=== PATIENT | male | born 1945 | race Two or more races ===

== ENCOUNTER 2023-08-19 11:55 | Emergency (ER) | payer MEDICARE, OTHER ==
[~2023-08-19] VITALS: Ht 172.7 cm; Wt 91.6 kg
[2023-08-19 11:58] VITALS: TEMP 98.6
[2023-08-19 13:37] LABS: BASOPHILS # (AUTO) 0.1 K/uL (0.0-0.2); BASOPHILS % (AUTO) 0.7 % (0.0-2.0); EOSINOPHILS # (AUTO) 0.1 K/uL (0.0-0.7); HEMATOCRIT 40 % (39-51); HEMOGLOBIN 13.7 g/dL (13.5-17.5); LYMPHOCYTES # (AUTO) 1.2 K/uL (0.8-4.8); LYMPHOCYTES % (AUTO) 8.8 % (20.0-44.0); MEAN CORPUSCULAR HEMOGLOBIN 30 PG (26.0-33.0); MEAN CORPUSCULAR HGB CONC 34 g/dl (31.0-36.0); MEAN CORPUSCULAR VOLUME 88 fL (80-96); MONOCYTES # (AUTO) 0.7 K/uL (0.1-1.30); NEUTROPHILS # (AUTO) 11.5 K/uL (1.8-8.9); NEUTROPHILS % (AUTO) 84.5 % (43.0-81.0); PLATELET COUNT (AUTO) 245 K/uL (150-450); RED BLOOD CELL COUNT(AUTO) 4.58 MIL/uL (4.5-6.0); RED CELL DISTRIBUTION WIDTH 13.7 % (11.5-15.0); WHITE BLOOD COUNT (AUTO) 13.6 K/uL (4.3-11.0)
[2023-08-19 13:45] LABS: CALCIUM, SERUM 9.5 mg/dL (8.5-10.1); CREATININE 1.2 mg/dL (0.6-1.3); POTASSIUM 3.8 mmol/L (3.5-5.1)
[2023-08-19 13:51] LABS: ALBUMIN 4.3 g/dL (3.4-5.0); BILIRUBIN,DIRECT 0.2 mg/dL (0.0-0.2); TOTAL PROTEIN, SERUM 7.8 g/dL (6.4-8.2)
[2023-08-19] MEDS ORDERED: MINERAL OIL 133 ML (PYXIS) 1 EA ENEMA RC ONE ×2 (15:16→15:30)
[2023-08-19] MEDS ORDERED: POLY17PO4 PO ×2 (15:21→15:42)
[2023-08-19] MEDS ORDERED: ACET-2605 PO ×2 (15:21→15:42)
[2023-08-19] MEDS ORDERED: ACETAMINOPHEN 325 MG TABLET PO ONE (15:30)
[2023-08-19] MEDS ORDERED: ACETAMINOPHEN 325 MG TABLET ONE (15:37)
[2023-08-19 16:35] VITALS: BP 119/80; O2SAT 98
[2023-08-19 17:38] LABS: APPEARANCE,URINE CLEAR (CLEAR); COLOR,URINE YELLOW (YELLOW)
[2023-08-19 17:39] LABS: BILIRUBIN,URINE TRACE (NEGATIVE); BLOOD, URINE NEGATIVE Ery/uL (NEGATIVE); KETONES,URINE 1+ mg/dL (NEGATIVE); PROTEIN,URINE NEGATIVE (NEGATIVE); UGLUCOSE NEGATIVE (NEGATIVE)
[2023-08-19 17:40] LABS: LEUKOCYTE ESTERASE ,URINE NEGATIVE (NEGATIVE); NITRITE, URINE NEGATIVE (NEGATIVE)
[2023-08-19 17:41] LABS: ADD URINE CULTURE NO; BACTERIA,URINE Rare /HPF (None Seen); RBC,URINE 0-2 /HPF (0-2); SQUAMOUS EPITHELIAL CELL,UR Few /HPF (None Seen); WBC,URINE 0-2 /HPF (0-3)
== END 2023-08-19 16:36 | disposition home or self-care (01) ==
LOC: ER 11:58
DX: N20.0 Calculus of kidney (principal); K57.90 Diverticulosis of intestine, part unspecified, without perforation or abscess without bleeding; K59.00 Constipation, unspecified; I10 Essential (primary) hypertension; Z60.2 Problems related to living alone
CPT/HCPCS: 36415; 80048-TC; 80076-TC; 81001; 83690-TC; 85025-TC

== ENCOUNTER 2024-07-17 13:06 | Emergency (ER) | payer MEDICARE, OTHER ==
[~2024-07-17] VITALS: Ht 165.1 cm; Wt 78.0 kg
[~2024-07-17 13:06] MED LIST: ACET-2605 PO; POLY17PO4 PO
[2024-07-17 14:12] LABS: BASOPHILS # (AUTO) 0.1 K/uL (0.0-0.2); BASOPHILS % (AUTO) 1.1 % (0.0-2.0); EOSINOPHILS # (AUTO) 0.2 K/uL (0.0-0.7); EOSINOPHILS % (AUTO) 3.5 % (0.0-6.0); HEMATOCRIT 37 % (39-51); HEMOGLOBIN 12.7 g/dL (13.5-17.5); LYMPHOCYTES # (AUTO) 1.9 K/uL (0.8-4.8); LYMPHOCYTES % (AUTO) 29.5 % (20.0-44.0); MEAN CORPUSCULAR HEMOGLOBIN 31 PG (26.0-33.0); MEAN CORPUSCULAR HGB CONC 35 g/dl (31.0-36.0); MEAN CORPUSCULAR VOLUME 91 fL (80-96); MONOCYTES # (AUTO) 0.4 K/uL (0.1-1.30); NEUTROPHILS # (AUTO) 3.9 K/uL (1.8-8.9); NEUTROPHILS % (AUTO) 59.9 % (43.0-81.0); PLATELET COUNT (AUTO) 199 K/uL (150-450); RED BLOOD CELL COUNT(AUTO) 4.07 MIL/uL (4.5-6.0); RED CELL DISTRIBUTION WIDTH 13.1 % (11.5-15.0); WHITE BLOOD COUNT (AUTO) 6.5 K/uL (4.3-11.0)
[2024-07-17] MEDS: POLYETHYLENE GLYCOL 3350 17 GM POWD.PACK PO ONE (14:20)
[2024-07-17 14:49] LABS: CALCIUM, SERUM 9.1 mg/dL (8.5-10.1); CARBON DIOXIDE 27 mmol/L (21-32); CHLORIDE 111 mmol/L (98-107); CREATININE 1.3 mg/dL (0.6-1.3); GLUCOSE 96 mg/dL (74-106); POTASSIUM 3.9 mmol/L (3.5-5.1); SODIUM SERUM 149 mmol/L (136-145); UREA NITROGEN, BLOOD 20 mg/dL (7-18)
[2024-07-17 15:01] LABS: ALANINE AMINOTRANSFERASE 12 U/L (12-78); ALBUMIN 3.9 g/dL (3.4-5.0); ALKALINE PHOSPHATASE 46 U/L (46-116); ASPARTATE AMINOTRANSFERASE 15 U/L (15-37); BILIRUBIN,DIRECT 0.1 mg/dL (0.0-0.2); BILIRUBIN,TOTAL 0.6 mg/dL (0.2-1.0); NT-PRO BNP 846 pg/mL (0-125); TOTAL PROTEIN, SERUM 7.2 g/dL (6.4-8.2)
[2024-07-17] MEDS ORDERED: POLY17PO4 PO (15:26)
[2024-07-17] MEDS ORDERED: ACET-2605 PO (15:26)
[2024-07-17] MEDS ORDERED: ACETAMINOPHEN ES 500 MG TABLET ONE (15:48)
[2024-07-17] MEDS: ACETAMINOPHEN ES 500 MG TABLET PO ONE (15:49)
[2024-07-17 16:44] VITALS: BP 145/89; TEMP 98.9; O2SAT 100
== END 2024-07-17 16:35 | disposition home or self-care (01) ==
LOC: ER 13:14
DX: B34.9 Viral infection, unspecified (principal); R42 Dizziness and giddiness; M79.10 Myalgia, unspecified site; I10 Essential (primary) hypertension; K59.00 Constipation, unspecified; R05.9 Cough, unspecified; R06.02 Shortness of breath; Z95.0 Presence of cardiac pacemaker; Z60.2 Problems related to living alone; Z20.822 Contact with and (suspected) exposure to COVID-19
CPT/HCPCS: 36415; 71045-TC; 80048-TC; 80076-TC; 83880; 84484-TC; 85025-TC

== ENCOUNTER → 2024-12-30 | Emergency (ER) | payer OTHER, MEDICAID ==
[~2024-12-30] VITALS: Ht 165.1 cm; Wt 85.7 kg
[~2024-12-30] MED LIST changes: +IV NS 0.9% 500 ML BAG IV ONE
[2024-12-30 04:59] VITALS: BP 145/68; TEMP 97.8; O2SAT 98
== END | disposition home or self-care (01) ==
LOC: ER 03:02
DX: S09.90XA Unspecified injury of head, initial encounter (principal); I10 Essential (primary) hypertension; Z95.0 Presence of cardiac pacemaker; Z79.899 Other long term (current) drug therapy; W01.0XXA Fall on same level from slipping, tripping and stumbling without subsequent striking against object, initial encounter; Y93.89 Activity, other specified; Y92.89 Other specified places as the place of occurrence of the external cause; Y99.8 Other external cause status
CPT/HCPCS: 99284; 72125; 70450; J7040

== ENCOUNTER 2025-07-25 18:29 | Inpatient (IN) | payer MEDICARE, OTHER ==
[~2025-07-25] VITALS: Ht 172.7 cm; Wt 78.5 kg
[~2025-07-25 18:29] MED LIST changes: -IV NS 0.9% 500 ML BAG IV ONE
[2025-07-25 19:08] LABS: PLATELET COUNT (AUTO) 383 K/uL (150-450); RED BLOOD CELL COUNT(AUTO) 4.22 MIL/uL (4.5-6.0); RED CELL DISTRIBUTION WIDTH 13.7 % (11.5-15.0); WHITE BLOOD COUNT (AUTO) 27.8 K/uL (4.3-11.0)
[2025-07-25] MEDS ORDERED: CEFEPIME 1 GM VIAL ONE (19:11)
[2025-07-25] MEDS: CEFEPIME 1 GM in IV D5W 50 ML IV ONE (19:15)
[2025-07-25 19:16] LABS: CALCIUM, SERUM 9.5 mg/dL (8.5-10.1); CREATININE 1.2 mg/dL (0.6-1.3); SODIUM SERUM 140 mmol/L (136-145); UREA NITROGEN, BLOOD 26 mg/dL (7-18)
[2025-07-25 19:19] LABS: INR 1.04 (0.91-1.10)
[2025-07-25 19:22] LABS: ASPARTATE AMINOTRANSFERASE 11 U/L (15-37); TOTAL PROTEIN, SERUM 8.1 g/dL (6.4-8.2)
[2025-07-25 19:24] LABS: LACTIC ACID 1.1 mmol/L (0.4-2.0)
[2025-07-25] MEDS ORDERED: VANCOMYCIN 1 GM /D5W 250 ML PB IV ONE (19:46)
[2025-07-25] MEDS: VANCOMYCIN 1 GM in IV D5W 250 ML IV ONE (19:50)
[2025-07-25] MEDS: IV NS 0.9% 1,000 ML BAG IV ONE (19:55)
[2025-07-25] MEDS: ACETAMINOPHEN 650 MG/SUPP.RECT RC ONE (20:30)
[2025-07-25 20:33] LABS: APPEARANCE,URINE CLEAR (CLEAR); BLOOD, URINE NEGATIVE Ery/uL (NEGATIVE); LEUKOCYTE ESTERASE ,URINE NEGATIVE (NEGATIVE); NITRITE, URINE NEGATIVE (NEGATIVE); UGLUCOSE NEGATIVE (NEGATIVE)
[2025-07-25] MEDS ORDERED: IOHEXOL-300 100 ML VIAL IV ONE (20:56)
[2025-07-25] MEDS ORDERED: IV NS 0.9% 250 ML IV ONE (20:57)
[2025-07-25 21:40] VITALS: BP 94/83; TEMP 98.2; O2SAT 98
[2025-07-25] MEDS ORDERED: DOSING PER PHARMACY-VANCOMYCIN IV XX PRN (22:00)
[2025-07-25] MEDS ORDERED: ONDANSETRON HCL/PF 4 MG/2 ML VIAL IVP PRN (22:00)
[2025-07-25] MEDS ORDERED: DOSING PER PHARMACY-CEFEPIME IVPB XX PRN (22:00)
[2025-07-25] MEDS ORDERED: MAGNESIUM HYDROXIDE 30 ML UDC PO PRN (22:00)
[2025-07-25] MEDS ORDERED: MAG HYDROX/AL HYDROX/SIMETH 30 ML UDC PO PRN (22:00)
[2025-07-25 23:03] VITALS: BP 94/83; TEMP 98.2; O2SAT 98
[2025-07-25] MEDS: IV NS 0.9% 1,000 ML IV PRN (23:30)
[2025-07-26 05:57] LABS: PLATELET COUNT (AUTO) 286 K/uL (150-450); RED BLOOD CELL COUNT(AUTO) 4.55 MIL/uL (4.5-6.0); RED CELL DISTRIBUTION WIDTH 14.2 % (11.5-15.0); WHITE BLOOD COUNT (AUTO) 28.4 K/uL (4.3-11.0)
[2025-07-26 06:12] LABS: CALCIUM, SERUM 9.2 mg/dL (8.5-10.1); CREATININE 1.4 mg/dL (0.6-1.3); PHOSPHORUS 3.6 mg/dL (2.5-4.9); SODIUM SERUM 138.0 mmol/L (136-145); UREA NITROGEN, BLOOD 24.0 mg/dL (7-18)
[2025-07-26 08:00] VITALS: BP 108/78; TEMP 98.6; O2SAT 98
[2025-07-26] MEDS: CEFEPIME 2 GM in IV D5W 100 ML IV SCH (08:58)
[2025-07-26] MEDS: AMLODIPINE BESYLATE 5 MG TABLET PO SCH (09:00)
[2025-07-26] MEDS ORDERED: BENAZEPRIL HCL 20 MG TABLET PO SCH (09:00)
[2025-07-26] MEDS ORDERED: MESALAMINE 250 MG CAPSULE.SA PO SCH ×2 (09:00)
[2025-07-26] MEDS: VANCOMYCIN 750 MG in IV D5W 250 ML IV ONE (10:18)
[2025-07-26] MEDS: ASCORBIC ACID 500 MG TABLET PO SCH (10:54)
[2025-07-26] MEDS: FERROUS SULFATE (325 MG) 325 MG/TAB TABLET PO SCH (10:54)
[2025-07-26] MEDS: DULOXETINE HCL 30 MG CAPSULE.DR PO SCH (10:54)
[2025-07-26] MEDS: FOLIC ACID 1 MG TABLET PO SCH (11:03)
[2025-07-26] MEDS: APIXABAN 2.5 MG TABLET PO SCH (11:03)
[2025-07-26] MEDS: PANTOPRAZOLE 40 MG TABLET.DR PO SCH (11:03)
[2025-07-26] MEDS: CYANOCOBALAMIN 500 MCG TABLET PO SCH (11:10)
[2025-07-26] MEDS: MULTIVIT W/MINERALS 1 TAB TABLET PO SCH (11:10)
[2025-07-26] MEDS: MUPIROCIN OINT 2% 22 GM TUBE TP SCH (11:13)
[2025-07-26] MEDS: MESALAMINE 400 MG CAP PO SCH (11:14)
[2025-07-26] MEDS: CARBIDOPA/LEVA CR 25/100MG 1 TAB.SA PO SCH (11:14)
[2025-07-26] MEDS: MEROPENEM 1 G in IV NS 0.9% 100 ML IV SCH (15:15)
[2025-07-26 20:00] VITALS: BP 134/65; TEMP 97.5; O2SAT 100
[2025-07-26] MEDS: DONEPEZIL 5 MG TABLET PO SCH (21:06)
[2025-07-26] MEDS: ACETAMINOPHEN 325 MG TABLET PO PRN (21:43)
[2025-07-27 07:10] LABS: PLATELET COUNT (AUTO) 317 K/uL (150-450); RED BLOOD CELL COUNT(AUTO) 3.72 MIL/uL (4.5-6.0); RED CELL DISTRIBUTION WIDTH 14.2 % (11.5-15.0); WHITE BLOOD COUNT (AUTO) 21.9 K/uL (4.3-11.0)
[2025-07-27 07:34] LABS: ASPARTATE AMINOTRANSFERASE 14 U/L (15-37); CALCIUM, SERUM 9.1 mg/dL (8.5-10.1); CREATINE KINASE, TOTAL 89 U/L (39-308); CREATININE 1.4 mg/dL (0.6-1.3); PHOSPHORUS 2.5 mg/dL (2.5-4.9); SODIUM SERUM 138 mmol/L (136-145); TOTAL PROTEIN, SERUM 6.8 g/dL (6.4-8.2); UREA NITROGEN, BLOOD 24 mg/dL (7-18)
[2025-07-27] MEDS: Z GUARD REMEDY 4 OZ OINT TP PRN (08:29)
[2025-07-27] MEDS ORDERED: VANCOMYCIN HCL 1.25 GM in IV D5W 250 ML IV SCH (09:00)
[2025-07-27] MEDS: CLOTRIMAZOLE 1% 15 GM TUBE TP SCH (09:44)
[2025-07-27] MEDS ORDERED: DOSING PER PHARMACY-ZOSYN IV 1 EA EA XX PRN (12:30)
[2025-07-27] MEDS: PIPERACILLIN /TAZOBACTAM 3.375 G in IV D5W 100 ML IV SCH (13:55)
[2025-07-27 20:00] VITALS: BP 119/53; TEMP 98.8; O2SAT 97
[2025-07-28 07:01] LABS: PLATELET COUNT (AUTO) 270 K/uL (150-450); RED BLOOD CELL COUNT(AUTO) 3.45 MIL/uL (4.5-6.0); RED CELL DISTRIBUTION WIDTH 13.7 % (11.5-15.0); WHITE BLOOD COUNT (AUTO) 20.5 K/uL (4.3-11.0)
[2025-07-28 07:19] LABS: CALCIUM, SERUM 8.7 mg/dL (8.5-10.1); CREATININE 1.2 mg/dL (0.6-1.3); PHOSPHORUS 2.2 mg/dL (2.5-4.9); SODIUM SERUM 141.0 mmol/L (136-145); UREA NITROGEN, BLOOD 21.0 mg/dL (7-18)
[2025-07-28 07:30] VITALS: BP_SYST 119; BP_SYST 94; BP_DIAS 57; BP_DIAS 74; TEMP 97.6; TEMP 98.8; O2SAT 100; O2SAT 92
[2025-07-28 08:07] LABS: PTH, INTACT 23 pg/mL (15-65)
[2025-07-28 08:21] VITALS: BP 119/57
[2025-07-28] MEDS: POTASSIUM CHLORIDE 20 MEQ TAB.PRT.SR PO SCH (10:01)
[2025-07-28] MEDS ORDERED: Folic Acid PO (12:58)
[2025-07-28] MEDS ORDERED: CARB1TAB63 PO (12:58)
[2025-07-28] MEDS ORDERED: APIX2.5T PO (12:58)
[2025-07-28] MEDS ORDERED: MESA400C3 PO (12:58)
[2025-07-28] MEDS ORDERED: Multivit W/Minerals PO (12:58)
[2025-07-28] MEDS ORDERED: CYAN500T64 PO (12:58)
[2025-07-28] MEDS ORDERED: PIPE3.379 IV (12:58)
[2025-07-28] MEDS ORDERED: FERR325T28 PO (12:58)
[2025-07-28] MEDS ORDERED: DONE5TAB34 PO (12:58)
[2025-07-28] MEDS ORDERED: DULO30CA2 PO (12:58)
[2025-07-28] MEDS ORDERED: AMLO-212 PO (12:58)
[2025-07-28] MEDS ORDERED: ASCO500T21 PO (12:58)
[2025-07-28] MEDS ORDERED: PANT40TA49 PO (12:58)
[2025-07-28] MEDS ORDERED: K PHOS NEUTRAL 250 MG TABLET PO ONE (17:00)
[2025-07-28] MEDS ORDERED: VANCOMYCIN HCL 125 MG CAPSULE PO SCH (18:00)
== END 2025-07-28 16:53 | DRG 871 ==
LOC: ER 18:33 → MED 20:54
PROVIDERS: ADMIT Registered Nurse Psychiatric/Mental Health; ATTEND Nurse Practitioner Family
DX: A41.9 Sepsis, unspecified organism (principal); N17.0 Acute kidney failure with tubular necrosis; G93.40 Encephalopathy, unspecified; D35.00 Benign neoplasm of unspecified adrenal gland; E86.0 Dehydration; R62.7 Adult failure to thrive; I25.10 Atherosclerotic heart disease of native coronary artery without angina pectoris; F02.80 Dementia in other diseases classified elsewhere, unspecified severity, without behavioral disturbance, psychotic disturbance, mood disturbance, and anxiety; G20.A1 Parkinson's disease without dyskinesia, without mention of fluctuations; Z95.0 Presence of cardiac pacemaker; Z98.1 Arthrodesis status; N18.9 Chronic kidney disease, unspecified; I12.9 Hypertensive chronic kidney disease with stage 1 through stage 4 chronic kidney disease, or unspecified chronic kidney disease; M19.90 Unspecified osteoarthritis, unspecified site; M48.00 Spinal stenosis, site unspecified; Z98.890 Other specified postprocedural states; Z87.440 Personal history of urinary (tract) infections; G62.9 Polyneuropathy, unspecified; E87.6 Hypokalemia; K21.9 Gastro-esophageal reflux disease without esophagitis; E27.8 Other specified disorders of adrenal gland; D64.9 Anemia, unspecified; Z86.19 Personal history of other infectious and parasitic diseases
CPT/HCPCS: 36415; 70450-TC; 71045-TC; 71250-TC; 80048-TC; 80053-TC; 80076-TC; 80202-TC; 82550-TC; 83605-TC; 83735-TC; 83970; 84100-TC; 84155; 84165; 84484-TC; 85025-TC; 85730-TC; 87040-TC; 87081-TC; 87086-TC; 97110-TC; 97116-TC; 97530-TC; A4223; G0378; J0692; J2185; J2543; J3373; J3374; J7030; J7050; J7060; Q9967